=== PATIENT | female | born 1940 | race Caucasian/White ===

== ENCOUNTER 2016-11-15 15:09 | Inpatient (IN) | payer OTHER ==
[~2016-11-15] VITALS: Ht 162.6 cm; Wt 62.3 kg
[~2016-11-15 15:09] MED LIST: ACET325T14 PO; ASPI-621 PO; HYDR-3240 PO; LOSA25TA2 PO; VITA1TAB68 PO
[2016-11-15] MEDS ORDERED: SODIUM CHLORIDE 0.9% 1,000 ML IV ONE (15:14)
[2016-11-15] MEDS ORDERED: SODIUM CHLORIDE FLUSH 10ML SYR IVF ONE (15:30)
[2016-11-15] MEDS ORDERED: LACT1CAP11 PO (15:35)
[2016-11-15 16:13] LABS: BLOOD UREA NITROGEN 17 mg/dL (7-18)
[2016-11-15 16:18] LABS: IS PT STATUS REG ER OR PRE ER? YES
[2016-11-15] MEDS ORDERED: ACETAMINOPHEN 325 MG TABLET PO PRN (19:30)
[2016-11-15] MEDS ORDERED: LABETALOL 5MG/ML, 20ML IVPush PRN (19:30)
[2016-11-15] MEDS ORDERED: TEMAZEPAM 15 MG CAPSULE PO PRN (19:30)
[2016-11-15] MEDS ORDERED: MAGNESIUM SULFATE PMX 2GM/50ML 50 ML IV ONE (20:00)
[2016-11-15] MEDS: SODIUM CHLORIDE 0.9% 1,000 ML IV SCH (21:43)
[2016-11-15] MEDS: HEPARIN 5,000 UNITS/ML, 1ML SQ SCH (21:43)
[2016-11-15 22:00] VITALS: BP 138/83
[2016-11-16 02:40] VITALS: BP 149/91
[2016-11-16 05:32] LABS: BLOOD UREA NITROGEN 12 mg/dL (7-18)
[2016-11-16] MEDS: HEPARIN 5,000 UNITS/ML, 1ML SQ SCH (06:00)
[2016-11-16] MEDS: SODIUM CHLORIDE 0.9% 1,000 ML IV SCH (08:12)
[2016-11-16 08:13] VITALS: BP 155/84
[2016-11-16] MEDS ORDERED: LACTOBACILLUS CHEW TABLET PO SCH (09:00)
[2016-11-16] MEDS ORDERED: MULTIVITS,STRESS FORMULA 1 TABLET PO SCH (09:00)
[2016-11-16] MEDS ORDERED: CYANOCOBALAMIN 1,000 MCG TABLET PO SCH (09:00)
[2016-11-16 09:51] LABS: IS PT STATUS REG ER OR PRE ER? NO
[2016-11-16 12:35] VITALS: BP 99/60
== END 2016-11-16 12:17 | disposition home or self-care (01) | DRG 308 ==
LOC: ED 18:10 → EDIP 18:11 → ED 18:21 → 5SO 20:05 → DCLOUNGE 11-16 12:05
PROVIDERS: ADMIT Internal Medicine
DX: I47.1 Supraventricular tachycardia (principal); N17.0 Acute kidney failure with tubular necrosis; E44.0 Moderate protein-calorie malnutrition; E86.0 Dehydration; G83.10 Monoplegia of lower limb affecting unspecified side; I11.9 Hypertensive heart disease without heart failure; I45.81 Long QT syndrome; I48.91 Unspecified atrial fibrillation; K21.9 Gastro-esophageal reflux disease without esophagitis; Z80.8 Family history of malignant neoplasm of other organs or systems; Z83.3 Family history of diabetes mellitus; Z88.0 Allergy status to penicillin; Z88.5 Allergy status to narcotic agent; Z86.73 Personal history of transient ischemic attack (TIA), and cerebral infarction without residual deficits; G90.8 Other disorders of autonomic nervous system
CPT/HCPCS: 36415; 71010; 80048; 82040; 83036; 83735; 84100; 84439; 84443; 84484; 85025; 87324; 93005; 96360; 96361; J1644; J3475; J7030

== ENCOUNTER → 2017-09-23 | Outpatient (CLI) | payer OTHER ==
[~2017-09-23] MED LIST changes: +LACT1CAP11 PO; +OMNIPAQUE 350 MG/ML, 100ML BOTTLE ONE
[2017-09-23 14:32] LABS: CREATININE 1.24 mg/dL (0.55-1.02)
== END | disposition home or self-care (01) ==
LOC: RAD 13:46
PROVIDERS: ATTEND Internal Medicine
DX: J84.10 Pulmonary fibrosis, unspecified (principal); K76.89 Other specified diseases of liver; K44.9 Diaphragmatic hernia without obstruction or gangrene; I71.2 Thoracic aortic aneurysm, without rupture; I71.01 Dissection of thoracic aorta; Z98.890 Other specified postprocedural states
CPT/HCPCS: 36415; 71275; 74174; 82565; Q9967

== ENCOUNTER 2017-12-21 11:33 | Emergency (ER) | payer OTHER, MEDICAID ==
[~2017-12-21] VITALS: Ht 162.6 cm; Wt 55.0 kg
[~2017-12-21 11:33] MED LIST changes: +MULT1TAB76 PO; -OMNIPAQUE 350 MG/ML, 100ML BOTTLE ONE
[2017-12-21] MEDS ORDERED: SODIUM CHLORIDE FLUSH 10ML SYR IVF ONE (12:00)
[2017-12-21] MEDS ORDERED: SODIUM CHLORIDE 0.9% 1,000ML IVBOLUS ONE (12:00)
[2017-12-21 12:02] LABS: BASOPHILS # (AUTO) 0.02 x10^3/uL (0-0.1); BASOPHILS % (AUTO) 0 % (0-1); EOSINOPHILS # (AUTO) 0.05 x10^3/uL (0-0.4); EOSINOPHILS % (AUTO) 0 % (1-7); LYMPHOCYTES # (AUTO) 1.15 x10^3/uL (1-3.4); LYMPHOCYTES % (AUTO) 10 % (22-44); MD NO; MEAN CORPUSCULAR HEMOGLOBIN 29.2 pg (27.0-34.8); MEAN CORPUSCULAR HGB CONC 33.4 g/dL (32.4-35.8); MEAN CORPUSCULAR VOLUME 87.5 fL (80-100); MEAN PLATELET VOLUME 8.6 fL (7.4-10.4); MONOCYTES % (AUTO) 8 % (2-9); NEUTROPHILS # (AUTO) 9.28 x10^3/uL (1.8-6.8); NEUTROPHILS % (AUTO) 81 % (42-75); PLATELET COUNT 193 x10^3/uL (130-400); RED BLOOD COUNT 4.66 x10^6/uL (3.82-5.3); RED CELL DISTRIBUTION WIDTH 14.7 % (9.6-15.2)
[2017-12-21 12:15] LABS: ALBUMIN 3.4 g/dL (3.4-5.0); ANION GAP 10 mmol/L (5-15); CALCIUM 8.9 mg/dL (8.5-10.1); CHLORIDE 105 mmol/L (98-107); CREATININE 1.51 mg/dL (0.55-1.02)
[2017-12-21 12:18] LABS: TROPONIN I < 0.015 ng/mL (0.000-0.045)
[2017-12-21 15:01] VITALS: BP 123/98
== END 2017-12-21 15:09 | disposition home or self-care (01) ==
LOC: ED 14:36
DX: E86.0 Dehydration (principal); N28.9 Disorder of kidney and ureter, unspecified; I10 Essential (primary) hypertension; Z88.6 Allergy status to analgesic agent; Z88.0 Allergy status to penicillin; Z86.73 Personal history of transient ischemic attack (TIA), and cerebral infarction without residual deficits
CPT/HCPCS: 36415; 71045; 80048; 82040; 83605; 84484; 85025; 93005; 96360; 99285; J7030

== ENCOUNTER 2017-12-21 20:21 | Emergency (ER) | payer OTHER, MEDICAID ==
[~2017-12-21] VITALS: Ht 157.5 cm; Wt 59.6 kg
[2017-12-21 20:37] VITALS: BP 142/78
== END 2017-12-21 23:16 | disposition home or self-care (01) ==
LOC: ED 22:24
DX: Z00.00 Encounter for general adult medical examination without abnormal findings (principal); Z72.9 Problem related to lifestyle, unspecified; I10 Essential (primary) hypertension
CPT/HCPCS: 99283

== ENCOUNTER 2018-03-23 11:57 | Emergency (ER) | payer OTHER, MEDICAID ==
[~2018-03-23] VITALS: Ht 160 cm; Wt 60.0 kg
[2018-03-23 12:24] LABS: BASOPHILS # (AUTO) 0.03 x10^3/uL (0-0.1); BASOPHILS % (AUTO) 0 % (0-1); EOSINOPHILS # (AUTO) 0.07 x10^3/uL (0-0.4); EOSINOPHILS % (AUTO) 1 % (1-7); LYMPHOCYTES # (AUTO) 1.46 x10^3/uL (1-3.4); LYMPHOCYTES % (AUTO) 20 % (22-44); MD NO; MEAN CORPUSCULAR HEMOGLOBIN 28.6 pg (27.0-34.8); MEAN CORPUSCULAR HGB CONC 33.1 g/dL (32.4-35.8); MEAN CORPUSCULAR VOLUME 86.6 fL (80-100); MEAN PLATELET VOLUME 8.6 fL (7.4-10.4); MONOCYTES # (AUTO) 0.55 x10^3/uL (0.2-0.8); MONOCYTES % (AUTO) 8 % (2-9); NEUTROPHILS # (AUTO) 5.07 x10^3/uL (1.8-6.8); NEUTROPHILS % (AUTO) 71 % (42-75); PLATELET COUNT 182 x10^3/uL (130-400); RED BLOOD COUNT 4.46 x10^6/uL (3.82-5.3); RED CELL DISTRIBUTION WIDTH 16.2 % (9.6-15.2)
[2018-03-23] MEDS ORDERED: SODIUM CHLORIDE FLUSH 10ML SYR IVF ONE (12:30)
[2018-03-23 12:35] LABS: ALBUMIN 3.3 g/dL (3.4-5.0); ANION GAP 6 mmol/L (5-15); CALCIUM 8.9 mg/dL (8.5-10.1); CHLORIDE 112 mmol/L (98-107); CREATININE 1.37 mg/dL (0.55-1.02)
[2018-03-23 13:49] VITALS: BP 170/116
[2018-03-23 14:44] LABS: CULTURE INDICATED? YES; MICROSCOPIC INDICATED
== END 2018-03-23 15:35 | disposition home or self-care (01) ==
LOC: ED 13:26
DX: R42 Dizziness and giddiness (principal); N30.00 Acute cystitis without hematuria; I10 Essential (primary) hypertension; E11.9 Type 2 diabetes mellitus without complications; Z86.73 Personal history of transient ischemic attack (TIA), and cerebral infarction without residual deficits
CPT/HCPCS: 36415; 71045; 80048; 81001; 82040; 85025; 87086; 93005; 99285

== ENCOUNTER 2018-04-06 14:15 | Emergency (ER) | payer OTHER, MEDICAID ==
[~2018-04-06] VITALS: Ht 162.6 cm; Wt 55.0 kg
[2018-04-06 14:21] VITALS: BP 178/103
== END 2018-04-06 15:11 | disposition home or self-care (01) ==
LOC: ED 15:00
DX: R42 Dizziness and giddiness (principal); G89.29 Other chronic pain; I10 Essential (primary) hypertension; E11.9 Type 2 diabetes mellitus without complications; Z86.73 Personal history of transient ischemic attack (TIA), and cerebral infarction without residual deficits
CPT/HCPCS: 93005; 99283

== ENCOUNTER 2018-04-15 11:35 | Observation (INO) | payer OTHER, MEDICAID ==
[~2018-04-15] VITALS: Ht 162.6 cm; Wt 59.1 kg
[2018-04-15 12:34] LABS: BASOPHILS # (AUTO) 0.03 x10^3/uL (0-0.1); BASOPHILS % (AUTO) 0 % (0-1); EOSINOPHILS # (AUTO) 0.09 x10^3/uL (0-0.4); EOSINOPHILS % (AUTO) 1 % (1-7); LYMPHOCYTES # (AUTO) 1.48 x10^3/uL (1-3.4); LYMPHOCYTES % (AUTO) 18 % (22-44); MD NO; MEAN CORPUSCULAR VOLUME 87.9 fL (80-100); MEAN PLATELET VOLUME 8.4 fL (7.4-10.4); MONOCYTES # (AUTO) 0.47 x10^3/uL (0.2-0.8); MONOCYTES % (AUTO) 6 % (2-9); NEUTROPHILS # (AUTO) 6.39 x10^3/uL (1.8-6.8); NEUTROPHILS % (AUTO) 76 % (42-75); PLATELET COUNT 187 x10^3/uL (130-400); RED BLOOD COUNT 4.64 x10^6/uL (3.82-5.3); RED CELL DISTRIBUTION WIDTH 16.3 % (9.6-15.2)
[2018-04-15 12:48] LABS: ALBUMIN 3.4 g/dL (3.4-5.0); ANION GAP 5 mmol/L (5-15); CALCIUM 9.1 mg/dL (8.5-10.1); CHLORIDE 111 mmol/L (98-107)
[2018-04-15 12:49] LABS: INTERNATIONAL NORMALIZED RATIO 0.93 (0.93-1.1); PROTHROMBIN TIME 9.6 Seconds (9.6-11.5)
[2018-04-15 12:53] LABS: ALANINE AMINOTRANSFERASE 20 U/L (12-78); ALKALINE PHOSPHATASE 90 U/L (45-117); BILIRUBIN,TOTAL 0.4 mg/dL (0.2-1.0); CREATININE 1.29 mg/dL (0.55-1.02); TOTAL PROTEIN 7.1 g/dL (6.4-8.2)
[2018-04-15 15:52] LABS: MICROSCOPIC AUTO
[2018-04-15 15:57] LABS: CULTURE INDICATED? YES
[2018-04-15] MEDS: SODIUM CHLORIDE 0.9% 1,000 ML IV SCH (16:43)
[2018-04-15] MEDS ORDERED: BISACODYL 10 MG SUPP PR PRN (17:00)
[2018-04-15] MEDS ORDERED: HALOPERIDOL 1 MG TABLET PO PRN (17:00)
[2018-04-15] MEDS ORDERED: LABETALOL 5MG/ML, 20ML IVPush PRN (17:00)
[2018-04-15] MEDS ORDERED: ACETAMINOPHEN 325 MG TABLET PO PRN (17:00)
[2018-04-15] MEDS ORDERED: DOCUSATE 100 MG CAPSULE PO PRN (17:00)
[2018-04-15] MEDS ORDERED: POLYETHYLENE GLYCOL 17 GM PACKET PO PRN (17:00)
[2018-04-15] MEDS ORDERED: hydrALAzine 20 MG/ML, 1ML IVPush PRN (17:00)
[2018-04-15] MEDS ORDERED: CEFTRIAXONE PMX 1GM/50ML 50 ML IV ONE (17:00)
[2018-04-15] MEDS ORDERED: CEFTRIAXONE 1,000 MG in SODIUM CHLORIDE 0.9% 50 ML IV SCH (17:00)
[2018-04-15 17:49] VITALS: BP 145/82
[2018-04-15 17:52] VITALS: BP 154/85
[2018-04-15 17:55] VITALS: BP 133/85
[2018-04-15 18:54] VITALS: BP 140/85
[2018-04-15] MEDS: CEFTRIAXONE PMX 1GM/50ML 50 ML IV SCH (21:48)
[2018-04-16 01:09] VITALS: BP 135/70
[2018-04-16] MEDS: SODIUM CHLORIDE 0.9% 1,000 ML IV SCH ×4 (02:35→22:10)
[2018-04-16 05:42] LABS: BASOPHILS # (AUTO) 0.04 x10^3/uL (0-0.1); BASOPHILS % (AUTO) 1 % (0-1); EOSINOPHILS # (AUTO) 0.16 x10^3/uL (0-0.4); EOSINOPHILS % (AUTO) 3 % (1-7); LYMPHOCYTES # (AUTO) 1.84 x10^3/uL (1-3.4); LYMPHOCYTES % (AUTO) 32 % (22-44); MD NO; MEAN CORPUSCULAR HEMOGLOBIN 29.5 pg (27.0-34.8); MEAN CORPUSCULAR HGB CONC 32.9 g/dL (32.4-35.8); MEAN CORPUSCULAR VOLUME 89.6 fL (80-100); MEAN PLATELET VOLUME 8.7 fL (7.4-10.4); MONOCYTES # (AUTO) 0.57 x10^3/uL (0.2-0.8); MONOCYTES % (AUTO) 10 % (2-9); NEUTROPHILS % (AUTO) 55 % (42-75); PLATELET COUNT 152 x10^3/uL (130-400); RED BLOOD COUNT 4.08 x10^6/uL (3.82-5.3); RED CELL DISTRIBUTION WIDTH 17.1 % (9.6-15.2)
[2018-04-16 05:53] LABS: CALCIUM 8.1 mg/dL (8.5-10.1); CHLORIDE 115 mmol/L (98-107)
[2018-04-16 05:56] LABS: ANION GAP 8 mmol/L (5-15); CREATININE 1.05 mg/dL (0.55-1.02)
[2018-04-16 07:14] VITALS: BP 160/82
[2018-04-16 13:00] LABS: OCCULT BLOOD NEGATIVE (NEGATIVE)
[2018-04-16 15:04] VITALS: BP 145/71
[2018-04-16 19:26] VITALS: BP 130/73
[2018-04-16] MEDS: CEFTRIAXONE PMX 1GM/50ML 50 ML IV SCH (22:10)
[2018-04-17 01:27] VITALS: BP 128/78
[2018-04-17 06:03] LABS: BASOPHILS # (AUTO) 0.03 x10^3/uL (0-0.1); BASOPHILS % (AUTO) 1 % (0-1); EOSINOPHILS # (AUTO) 0.13 x10^3/uL (0-0.4); EOSINOPHILS % (AUTO) 2 % (1-7); LYMPHOCYTES # (AUTO) 1.79 x10^3/uL (1-3.4); LYMPHOCYTES % (AUTO) 29 % (22-44); MD NO; MEAN CORPUSCULAR HEMOGLOBIN 29.4 pg (27.0-34.8); MEAN CORPUSCULAR HGB CONC 33.2 g/dL (32.4-35.8); MEAN CORPUSCULAR VOLUME 88.6 fL (80-100); MEAN PLATELET VOLUME 8.6 fL (7.4-10.4); MONOCYTES % (AUTO) 10 % (2-9); NEUTROPHILS # (AUTO) 3.65 x10^3/uL (1.8-6.8); NEUTROPHILS % (AUTO) 59 % (42-75); PLATELET COUNT 168 x10^3/uL (130-400); RED BLOOD COUNT 4.39 x10^6/uL (3.82-5.3); RED CELL DISTRIBUTION WIDTH 16.5 % (9.6-15.2)
[2018-04-17 06:04] LABS: ALBUMIN 2.9 g/dL (3.4-5.0); ANION GAP 6 mmol/L (5-15); CALCIUM 8.5 mg/dL (8.5-10.1); CHLORIDE 113 mmol/L (98-107); CREATININE 1.13 mg/dL (0.55-1.02)
[2018-04-17 07:00] VITALS: BP 166/88
[2018-04-17] MEDS: ASPIRIN 81 MG TABLET EC PO SCH (08:47)
[2018-04-17] MEDS: SODIUM CHLORIDE 0.9% 1,000 ML IV SCH ×2 (10:22→16:43)
[2018-04-17 13:51] VITALS: BP 129/76
[2018-04-17 18:56] VITALS: BP 150/79
[2018-04-17] MEDS: ATORVASTATIN 40 MG TABLET PO SCH (20:49)
[2018-04-18 01:44] VITALS: BP 144/82
[2018-04-18] MEDS: SODIUM CHLORIDE 0.9% 1,000 ML IV SCH (04:22)
[2018-04-18 06:37] VITALS: BP 145/85
[2018-04-18] MEDS: ASPIRIN 81 MG TABLET EC PO SCH (08:20)
[2018-04-18 12:49] VITALS: BP 180/82
[2018-04-18 19:52] VITALS: BP 149/75
[2018-04-18] MEDS: ATORVASTATIN 40 MG TABLET PO SCH (21:00)
[2018-04-19 01:21] VITALS: BP 155/72
[2018-04-19 06:59] VITALS: BP 165/84
[2018-04-19] MEDS: ASPIRIN 81 MG TABLET EC PO SCH (08:06)
[2018-04-19 12:28] VITALS: BP 153/83
[2018-04-19 19:57] VITALS: BP 150/76
[2018-04-19] MEDS: ATORVASTATIN 40 MG TABLET PO SCH (20:53)
[2018-04-20 01:38] VITALS: BP 146/74
[2018-04-20] MEDS: ASPIRIN 81 MG TABLET EC PO SCH (08:03)
[2018-04-20 08:21] VITALS: BP 161/119
[2018-04-20 12:29] LABS: FREE T4 (FREE THYROXINE) 1.26 ng/dL (0.76-1.46); THYROID STIMULATING HORMONE 0.972 mIU/L (0.358-3.740)
[2018-04-20 12:48] VITALS: BP 166/62
[2018-04-20 18:54] VITALS: BP 157/91
[2018-04-20] MEDS: ATORVASTATIN 40 MG TABLET PO SCH (20:57)
[2018-04-21 01:31] VITALS: BP 131/83
[2018-04-21] MEDS: ASPIRIN 81 MG TABLET EC PO SCH (08:01)
[2018-04-21 08:17] VITALS: BP 185/85
[2018-04-21 11:48] VITALS: BP 150/76
[2018-04-21 13:53] VITALS: BP 183/95
[2018-04-21 15:35] VITALS: BP_SYST 122; BP_SYST 151; BP_SYST 156; BP_DIAS 86; BP_DIAS 89; BP_DIAS 99
[2018-04-21] MEDS ORDERED: ASPI-621 PO (17:05)
[2018-04-21] MEDS ORDERED: ATOR40TA78 PO (17:05)
== END 2018-04-21 17:56 | disposition home or self-care (01) ==
LOC: ED 13:39 → EDIP 16:43 → 3NE 17:40
PROVIDERS: ADMIT Family Medicine; ATTEND Family Medicine
DX: N39.0 Urinary tract infection, site not specified (principal); I25.10 Atherosclerotic heart disease of native coronary artery without angina pectoris; I65.23 Occlusion and stenosis of bilateral carotid arteries; K21.9 Gastro-esophageal reflux disease without esophagitis; N18.3 Chronic kidney disease, stage 3 (moderate); I12.9 Hypertensive chronic kidney disease with stage 1 through stage 4 chronic kidney disease, or unspecified chronic kidney disease; E11.22 Type 2 diabetes mellitus with diabetic chronic kidney disease; E04.2 Nontoxic multinodular goiter; F31.9 Bipolar disorder, unspecified; Z83.3 Family history of diabetes mellitus; Z86.73 Personal history of transient ischemic attack (TIA), and cerebral infarction without residual deficits; Z91.14 Patient's other noncompliance with medication regimen; Z91.19 Patient's noncompliance with other medical treatment and regimen; Z95.1 Presence of aortocoronary bypass graft
CPT/HCPCS: 36415; 70450; 72125; 80048; 80053; 81001; 82040; 82272; 83690; 84439; 84443; 85025; 85610; 85730; 87086; 92523; 93005; 93306; 93880; 96361; 96365; 96366; 97162; 97530; 99285; G0378; G8978; G8979; G8980; J0696; J7030

== ENCOUNTER 2018-04-21 17:39 | Inpatient (IN) | payer OTHER, MEDICAID ==
[~2018-04-21] VITALS: Ht 162.6 cm; Wt 56.3 kg
[~2018-04-21 17:39] MED LIST changes: +ATOR40TA78 PO
[2018-04-21 19:15] VITALS: BP 145/76
[2018-04-21] MEDS: PLEASE ENTER HEIGHT AND WEIGHT MC SCH (21:30)
[2018-04-22] MEDS: PLEASE ENTER HEIGHT AND WEIGHT MC SCH (05:30)
[2018-04-22] MEDS: ASPIRIN 81 MG TABLET EC PO SCH (05:39)
[2018-04-22 07:55] VITALS: BP 153/81
[2018-04-22] MEDS: MULTIVITS,STRESS FORMULA 1 TABLET PO SCH (08:38)
[2018-04-22] MEDS ORDERED: POLYETHYLENE GLYCOL 17 GM PACKET PO PRN (13:00)
[2018-04-22] MEDS ORDERED: ACETAMINOPHEN 325 MG TABLET PO PRN (13:00)
[2018-04-22] MEDS ORDERED: BISACODYL 10 MG SUPP PR PRN (13:00)
[2018-04-22] MEDS ORDERED: DOCUSATE 100 MG CAPSULE PO PRN (13:00)
[2018-04-22] MEDS: ATORVASTATIN 40 MG TABLET PO SCH (19:46)
[2018-04-22 19:52] VITALS: BP 133/78
[2018-04-23] MEDS: ASPIRIN 81 MG TABLET EC PO SCH (05:21)
[2018-04-23 05:47] LABS: CHOLESTEROL, TOTAL 157 mg/dL (140-239); TRIGLYCERIDES 111 mg/dL (50-200); VLDL CHOLESTEROL 22 mg/dL (0-25)
[2018-04-23 06:13] LABS: CHOL/HDL RATIO 2.4; FREE T4 (FREE THYROXINE) 1.06 ng/dL (0.76-1.46); HDL CHOL % 41 % (28-40); HDL CHOLESTEROL (DIRECT) 65 mg/dL (40-60); LDL CHOLESTEROL,CALCULATED 70 mg/dL (54-169); LDL/HDL RATIO 1.1 (0.5-3.0); THYROID STIMULATING HORMONE 0.896 mIU/L (0.358-3.740)
[2018-04-23 06:14] LABS: FOLATE LEVEL > 20.0 ng/mL (3.1-17.5)
[2018-04-23 08:01] VITALS: BP 168/102
[2018-04-23] MEDS: MULTIVITS,STRESS FORMULA 1 TABLET PO SCH (08:39)
[2018-04-23 19:36] VITALS: BP 148/85
[2018-04-23] MEDS: ATORVASTATIN 40 MG TABLET PO SCH (21:00)
[2018-04-24] MEDS: ASPIRIN 81 MG TABLET EC PO SCH (05:16)
[2018-04-24 07:36] VITALS: BP 163/107
[2018-04-24 08:15] VITALS: BP 127/89
[2018-04-24] MEDS: MULTIVITS,STRESS FORMULA 1 TABLET PO SCH (08:33)
== END 2018-04-24 11:30 | disposition left against medical advice (07) | DRG 885 ==
LOC: 3E 18:17 → INTOOBSV 18:17 → OBSVTOIN 18:17
PROVIDERS: ADMIT Counselor Mental Health; ATTEND Counselor Mental Health
DX: F31.9 Bipolar disorder, unspecified (principal); I25.10 Atherosclerotic heart disease of native coronary artery without angina pectoris; R62.7 Adult failure to thrive; K21.9 Gastro-esophageal reflux disease without esophagitis; Z53.21 Procedure and treatment not carried out due to patient leaving prior to being seen by health care provider; I12.9 Hypertensive chronic kidney disease with stage 1 through stage 4 chronic kidney disease, or unspecified chronic kidney disease; N18.3 Chronic kidney disease, stage 3 (moderate); Z95.1 Presence of aortocoronary bypass graft; Z91.19 Patient's noncompliance with other medical treatment and regimen; Z88.5 Allergy status to narcotic agent; Z86.73 Personal history of transient ischemic attack (TIA), and cerebral infarction without residual deficits; Z83.3 Family history of diabetes mellitus; Z79.899 Other long term (current) drug therapy; Z79.82 Long term (current) use of aspirin; Z80.8 Family history of malignant neoplasm of other organs or systems
CPT/HCPCS: 36415; 80061; 82140; 82607; 82746; 84439; 84443; 86592

== ENCOUNTER 2019-02-15 13:17 | Emergency (ER) | payer MEDICAID, MEDICARE, OTHER ==
[~2019-02-15] VITALS: Ht 162.6 cm; Wt 55.0 kg
[2019-02-15 14:33] VITALS: BP 138/72
== END 2019-02-15 16:04 | disposition home or self-care (01) ==
LOC: ED 14:40
DX: R07.89 Other chest pain (principal); E11.9 Type 2 diabetes mellitus without complications; K21.9 Gastro-esophageal reflux disease without esophagitis; I10 Essential (primary) hypertension; Z86.73 Personal history of transient ischemic attack (TIA), and cerebral infarction without residual deficits; Z72.9 Problem related to lifestyle, unspecified
CPT/HCPCS: 36415; 71045; 80048; 82040; 84484; 85025; 93005; 99284